=== PATIENT | female | born 2000 | race Caucasian/White ===

== ENCOUNTER 2023-01-24 22:12 | Emergency (ER) | payer BC ==
[~2023-01-24] VITALS: Ht 160 cm; Wt 94.3 kg
[2023-01-24 22:31] VITALS: BP 134/92; PULSE 128; RESP 20; TEMP 98.4; O2SAT 98
[2023-01-24] MEDS ORDERED: NACL 0.9% 1,000 ML IV SCH (23:15)
[2023-01-24] MEDS ORDERED: KETOROLAC 30 MG/ML VIAL IVP ONE (23:15)
[2023-01-24] MEDS ORDERED: ONDANSETRON 4 MG/2 ML VIAL IVP ONE (23:15)
[2023-01-24 23:34] LABS: APPEARANCE,URINE SL CLOUDY (CLEAR); BILIRUBIN,URINE 2+ (NEGATIVE); BLOOD, URINE NEGATIVE (NEGATIVE); COLOR,URINE YELLOW (YELLOW); LEUKOCYTE ESTERASE ,URINE NEGATIVE (NEGATIVE); NITRITE, URINE NEGATIVE (NEGATIVE); PROTEIN,URINE 1+ (NEGATIVE); UGLUCOSE NEGATIVE (NEGATIVE)
[2023-01-24 23:35] LABS: BASOPHILS % (AUTO) 0.6 % (0.0-2.0); EOSINOPHILS % (AUTO) 0.4 % (0.0-4.0); HEMATOCRIT 42.3 % (36-48); HEMOGLOBIN 14.1 g/dL (12.0-16.0); LYMPHOCYTES # (AUTO) 1.6 K/uL (2.5-16.5); LYMPHOCYTES % (AUTO) 28.1 % (20.5-51.1); MEAN CORPUSCULAR HEMOGLOBIN 29 pg (27-31); MEAN CORPUSCULAR HGB CONC 34 g/dL (33-37); MEAN CORPUSCULAR VOLUME 85.6 fL (80-94); MONOCYTES # (AUTO) 0.6 K/uL (0.8-1.0); MONOCYTES % (AUTO) 11.2 % (1.7-9.3); NEUTROPHILS # (AUTO) 3.4 K/uL (1.8-7.7); NEUTROPHILS % (AUTO) 59.7 % (42.2-75.2); PLATELET COUNT (AUTO) 263 K/uL (140-450); RED BLOOD CELL COUNT(AUTO) 4.94 MIL/uL (4.20-5.40); RED CELL DISTRIBUTION WIDTH 15.1 % (11.6-13.7); WHITE BLOOD COUNT (AUTO) 5.7 K/uL (4.8-10.8)
[2023-01-24 23:38] LABS: ICTOTEST POSITIVE (NEGATIVE)
[2023-01-25 00:20] LABS: ALBUMIN 3.3 g/dL (3.4-5.0); ANION GAP 17.5 (8-16); CALCIUM 9.5 mg/dL (8.5-10.1); CARBON DIOXIDE 21.3 mmol/L (21-32); CREATININE 0.6 mg/dL (0.6-1.3); TOTAL BILIRUBIN 0.8 mg/dL (0.0-1.0); TOTAL PROTEIN, SERUM 7.4 g/dL (6.4-8.2)
[2023-01-25 00:24] LABS: POTASSIUM 2.8 mmol/L (3.5-5.1)
[2023-01-25] MEDS ORDERED: POTASSIUM CHLORIDE 10 MEQ TABER PO ONE (00:30)
[2023-01-25] MEDS ORDERED: ONDA8TAB87 PO (00:44)
[2023-01-25] MEDS ORDERED: IBUP-2213 PO (00:44)
[2023-01-25 01:22] VITALS: BP 121/68; PULSE 87; RESP 17; TEMP 98.4; O2SAT 99
== END 2023-01-25 01:22 | disposition home or self-care (01) ==
LOC: MED 22:12
DX: R11.2 Nausea with vomiting, unspecified (principal); R10.13 Epigastric pain; Z98.890 Other specified postprocedural states
CPT/HCPCS: 36415; 80053; 81003; 83690; 85025; 96361; 96374; 96375; 99284; J1885; J2405; J7030

== ENCOUNTER 2023-01-31 09:28 | Emergency (ER) | payer BC ==
[~2023-01-31] VITALS: Ht 160 cm; Wt 94.1 kg
[~2023-01-31 09:28] MED LIST: IBUP-2213 PO; ONDA8TAB87 PO
[2023-01-31 09:31] VITALS: BP 116/75; PULSE 86; RESP 18; TEMP 97.7; O2SAT 100
[2023-01-31] MEDS ORDERED: NACL 0.9% 1,000 ML IV ONE (09:40)
[2023-01-31] MEDS ORDERED: METOCLOPRAMIDE 10 MG/2 ML INJ VIAL IVP ONE (09:40)
[2023-01-31 10:01] VITALS: BP 116/75; PULSE 86; RESP 18; TEMP 97.7; O2SAT 100
[2023-01-31 10:14] LABS: BASOPHILS # (AUTO) 0.1 K/uL (0.00-0.22); BASOPHILS % (AUTO) 0.7 % (0.0-2.0); EOSINOPHILS % (AUTO) 0.6 % (0.0-4.0); HEMATOCRIT 42.6 % (36-48); HEMOGLOBIN 14.3 g/dL (12.0-16.0); LYMPHOCYTES # (AUTO) 1.8 K/uL (2.5-16.5); LYMPHOCYTES % (AUTO) 24.9 % (20.5-51.1); MEAN CORPUSCULAR HEMOGLOBIN 29 pg (27-31); MEAN CORPUSCULAR HGB CONC 34 g/dL (33-37); MONOCYTES # (AUTO) 0.7 K/uL (0.8-1.0); MONOCYTES % (AUTO) 10.1 % (1.7-9.3); NEUTROPHILS # (AUTO) 4.7 K/uL (1.8-7.7); NEUTROPHILS % (AUTO) 63.7 % (42.2-75.2); PLATELET COUNT (AUTO) 268 K/uL (140-450); RED BLOOD CELL COUNT(AUTO) 4.96 MIL/uL (4.20-5.40); RED CELL DISTRIBUTION WIDTH 15.1 % (11.6-13.7); WHITE BLOOD COUNT (AUTO) 7.4 K/uL (4.8-10.8)
[2023-01-31 10:34] LABS: ALBUMIN 3.4 g/dL (3.4-5.0); ANION GAP 18.7 (8-16); CALCIUM 9.5 mg/dL (8.5-10.1); CREATININE 0.6 mg/dL (0.6-1.3); TOTAL BILIRUBIN 0.9 mg/dL (0.0-1.0); TOTAL PROTEIN, SERUM 7.8 g/dL (6.4-8.2)
[2023-01-31 10:36] LABS: POTASSIUM 2.7 mmol/L (3.5-5.1)
[2023-01-31] MEDS ORDERED: KCL 20 MEQ IN 100 mL PREMIX 200 ML IV ONE (10:50)
[2023-01-31] MEDS ORDERED: SODIUM PHOS / POTASSIUM PHOS 1 PKT PDR PO STA (11:24)
[2023-01-31] MEDS ORDERED: ONDA-188 SL (12:32)
[2023-01-31] MEDS ORDERED: POTA10TA70 PO (12:33)
== END 2023-01-31 12:48 | disposition home or self-care (01) ==
LOC: MED 09:28
DX: R11.2 Nausea with vomiting, unspecified (principal); E87.6 Hypokalemia; R19.7 Diarrhea, unspecified; Z79.899 Other long term (current) drug therapy; Z79.1 Long term (current) use of non-steroidal anti-inflammatories (NSAID)
CPT/HCPCS: 36415; 74177; 80053; 81002; 81025; 83690; 85025; 96361; 96365; 96366; 96375; 99285; J2765; J3480; J7030; Q9967